=== PATIENT | male | born 1945 ===

== ENCOUNTER 2018-07-31 09:03 | Outpatient (CLI) | payer OTHER | END 2018-07-31 09:06 | disposition home or self-care (01) | LOC: SONOGRAMA 09:03 | DX: E04.2 Nontoxic multinodular goiter (principal) ==

== ENCOUNTER 2018-09-05 13:38 | Emergency (ER) | payer OTHER ==
[~2018-09-05] VITALS: Ht 170.2 cm; Wt 113.4 kg
[2018-09-05] MEDS ORDERED: COUGH SYRU100 MG/5 M PO (14:24)
[2018-09-05] MEDS ORDERED: METFORMIN HCL500 M2 PO (14:25)
[2018-09-05] MEDS ORDERED: ZITHROMAX200 MG PO (14:26)
== END 2018-09-05 18:42 | disposition home or self-care (01) ==
LOC: ER 13:38
DX: B34.9 Viral infection, unspecified (principal); J11.1 Influenza due to unidentified influenza virus with other respiratory manifestations

== ENCOUNTER 2025-04-29 05:29 | Day surgery (SDC) | payer OTHER ==
[2025-04-22 12:03] VITALS: BP 140/70
[2025-04-22 12:21] LABS: BASO % 0.2 % (0.1-1.2); EOS # 0.07 (0.04-0.54); EOS % 1.3 % (0.7-7.0); LYMPH # 1.14 (1.18-3.74); LYMPH % 21.2 % (19.3-53.1); MEAN PLATELET VOLUME 9.90 fl (9.4-12.4); MONO # 0.39 (0.24-0.82); MONO % 7.3 % (4.7-12.5); NEUT # 3.74 (1.56-6.13); NEUT % 69.6 % (34.0-71.1); RED CELL DISTRIBUTION WIDTH 13.3 % (11.6-14.4)
[2025-04-22 13:07] LABS: INR 1.02
[2025-04-22 13:31] LABS: ALT/SGPT 29.0 U/L (12-78); AST/SGOT 16.0 U/L (15-37); BILIRUBIN TOTAL 0.8 mg/dL (0.3-1.2); BUN CREA RATIO 15.0 (7.0-25.0); CREATININE SERUM 1.08 mg/dL (0.70-1.30); GFR 65.78; GLOBULINA 3.9 G/DL (2.4-3.5); GLUCOSE FASTING 94.0 mg/dL (65-100); OSMOLALITY SERUM 282.0 MOSM/KG (275-295)
[~2025-04-29] VITALS: Ht 167.6 cm; Wt 92.5 kg
[~2025-04-29 05:29] MED LIST: COUGH SYRU100 MG/5 M PO; LASIX20 MG PO; LIPITOR40 M1 PO; METFORMIN HCL500 M2 PO; OXYBUTYNIN CHLO15 MG PO; TAMS0.4C PO; ZITHROMAX200 MG PO; [UNRECOGNIZED DRUG - OTHER]; [UNRECOGNIZED DRUG - OTHER]
== END 2025-04-29 12:45 | disposition home or self-care (01) ==
LOC: CIR.AMB 05:29
PROVIDERS: ATTEND Internal Medicine
DX: D12.2 Benign neoplasm of ascending colon (principal); D12.3 Benign neoplasm of transverse colon; K63.5 Polyp of colon; K62.5 Hemorrhage of anus and rectum; R63.4 Abnormal weight loss; D50.9 Iron deficiency anemia, unspecified